=== PATIENT | male | born 1995 | race Caucasian/White ===

== ENCOUNTER 2016-05-03 12:02 | Emergency (ER) | payer OTHER ==
[~2016-05-03] VITALS: Ht 182.9 cm; Wt 70.6 kg
[~2016-05-03 12:02] MED LIST: ALBUAER INH; CEPH500T PO
[2016-05-03 12:04] VITALS: TEMP 36.9; Ht 182.9 cm; Wt 70.6 kg
[2016-05-03] MEDS ORDERED: VNTHFA/IN INH (12:15)
[2016-05-03] MEDS ORDERED: CEPH500C PO (12:23)
[2016-05-03] MEDS ORDERED: SULF800T23 PO (12:23)
[2016-05-03 12:25] VITALS: BP 121/74; PULSE 94; O2SAT 97
--- NOTE | 2016-05-03 12:26 | EMERGENCY ROOM VISIT NOTE ---
History First contact with patient: 12:12 Chief Complaint: WOUND INFECTION Stated Complaint: INFECTED CUT Nursing Triage Summary: Patient reports he was in [place] and is unsure what exactly he cut his leg on but left leg is now red swollen and swollen History of Present Illness The patient is a 20 year old male who presents to the Emergency Room with complaints of a possible wound infection of his left lower leg. The patient reports that he was on spring break in [place] last week and cut the leg on some stairs 1 week ago. He states that when he woke up this morning, the area around the scab was read and there was a small amount of drainage. He rates the discomfort a 5/10. The patient does report he has had infections in his knee before, but is unsure about a history of MRSA. He has not had any fevers/ chills or red streaking up the leg. He denies any numbness or weakness. Review of Systems A complete 6 point review of systems was reviewed with the patient with pertinent positives and negatives as per history of present illness. All else were negative. Social History Smoking Status: Never Smoker Current/Historical Medications Scheduled Albuterol Hfa (Ventolin Hfa), 2-4 PUFFS INH Q6H Cephalexin Monohydrate (Keflex), 500 MG PO QID Sulfa/Trimethoprim (Bactrim Ds 800MG/160MG), 1 TAB PO BID Allergies Coded Allergies: No Known Allergies (Unverified , 05/03/16) Physical Exam Vital Signs Date Time Temp Pulse Resp B/P Pulse Ox O2 Delivery O2 Flow Rate FiO2 05/03/16 12:04 36.9 98 20 112/73 95 Room Air Physical Exam VITALS: Vitals are noted on the nurse's note and reviewed by myself. Vital signs stable. GENERAL: This is a 20-year-old male, in no acute distress, nondiaphoretic, well- developed well-nourished. SKIN: There is a scabbed 12 cm laceration to the anterior left jackman with surrounding erythema. There is a minimal amount of puslike drainage. No lymphangitic streaking, induration or fluctuance. HEART: Regular rate and rhythm without murmurs gallops or rubs. LUNGS: Clear to auscultation bilaterally without wheezes, rales or rhonchi. NEURO: Patient was alert and oriented to person place and time. Medical Decision & Procedures Medications Administered Medications (Trade) Dose Ordered Sig/Nicho Route Start Time Stop Time Status Last Admin Dose Admin Cephalexin Monohydrate (Keflex 500MG Home Pack) 1 homepack NOW ONCE PO 05/03/16 12:30 05/03/16 12:31 DC 05/03/16 12:35 1 HOMEPACK Trimethoprim/ Sulfamethoxazole (Sulfameth/ Trimeth Ds 800/ 160MG Home Pack) 1 homepack UD ONCE PO 05/03/16 12:30 05/03/16 12:31 DC 05/03/16 12:35 1 HOMEPACK Medical Decision Differential diagnosis includes cellulitis, wound dehiscence, abscess, among others. The patient was evaluated as above. He has a healing wound with surrounding cellulitis. There is no evidence of abscess. A culture of the drainage was obtained and sent. As there is a small amount of drainage, I did choose to give the patient Bactrim in addition to Keflex to provide coverage for MRSA, pending the culture results. He was given home packs and prescriptions for both of these medications. He was instructed to follow-up with [facility] or return here if he has any signs of worsening infection. He verbalized understanding of my assessment and treatment plan and was discharged home in good condition. After my evaluation of the patient, he requested a refill of his albuterol inhaler. The patient reports he has a history of asthma but lost his inhaler while on vacation. He denies any symptoms at this time. He was given one albuterol inhaler and instructed to follow-up with [facility] in the future. Impression Primary Impression: Infected laceration Departure Information Dispostion Home / Self-Care Condition GOOD Prescriptions Sulfa/Trimethoprim (Bactrim Ds 800MG/160MG) Tab 1 TAB PO BID for 10 Days, #20 TAB Prov: Savanna Null PA-C 05/03/16 Cephalexin Monohydrate (Keflex) 500 Mg Cap 500 MG PO QID for 10 Days, #40 CAP Prov: Savanna Null PA-C 05/03/16 Referrals No Doctor, Assigned (PCP) Patient Instructions [facility] Additional Instructions You were prescribed Bactrim to be taken twice daily as prescribed. This is an antibiotic. All antibiotics have the potential to cause diarrhea. Stop this medication and contact a medical provider if you were to develop any significant adverse side effects including: wheezing, shortness of breath, passing out, vomiting, or a diffuse rash. Always take antibiotics as directed and COMPLETE the ENTIRE course regardless of the improvement of your symptoms. You were prescribed Keflex to be taken 4 times daily as prescribed. This is an antibiotic. All antibiotics have the potential to cause diarrhea. Stop this medication and contact a medical provider if you were to develop any significant adverse side effects including: wheezing, shortness of breath, passing out, vomiting, or a diffuse rash. Always take antibiotics as directed and COMPLETE the ENTIRE course regardless of the improvement of your symptoms. For pain control, you can use the following [id number] medicines (if >12 yo): - Regular strength (325mg/tab) Tylenol (acetaminophen) 2 tabs every 4-6 hours as needed. Do not exceed 12 tablets in a 24 hour period. Avoid taking more than 4 grams (4000 mg) of Tylenol per day. This includes any other sources of acetaminophen you may take on a regular basis. - Regular strength (200 mg/tab) Advil (ibuprofen) 1-2 tabs every 4-6 hours as needed. Do not exceed a dose of 3200 mg per day. Follow-up with [facility] as needed. Return to the emergency department with worsening redness, worsening swelling, fevers or any other new/concerning symptoms.
[2016-05-03] MEDS ORDERED: CEPHALEXIN 500MG HOME PACK 1 EA BTL PO ONE (12:30)
[2016-05-03] MEDS ORDERED: SEPTRA DS HOME PACK 1 EA VIAL PO ONE (12:30)
[2016-05-03] MEDS ORDERED: ALBUTEROL HFA 8 GM INHALER INH ONE ×2 (12:36→12:45)
[2016-05-23] MEDS ORDERED: CEPH500C2 PO (07:55)
== END 2016-05-03 12:38 | disposition home or self-care (01) ==
LOC: C.EDB 12:04 → C.EDD 12:38
DX: S81.812A Laceration without foreign body, left lower leg, initial encounter (principal); X58.XXXA Exposure to other specified factors, initial encounter; L03.116 Cellulitis of left lower limb

== ENCOUNTER 2016-05-03 20:27 | Inpatient (IN) | payer OTHER ==
[~2016-05-03] VITALS: Ht 182.9 cm; Wt 69.6 kg
[~2016-05-03 20:27] MED LIST changes: +CEPH500C PO; +SULF800T23 PO; +VNTHFA/IN INH
[2016-05-03] MEDS ORDERED: ACETAMINOPHEN 500 MG TAB PO STA (20:52)
[2016-05-03] MEDS ORDERED: SODIUM CHLORIDE 0.9% 1000ML 1,000 ML IV STA (20:57)
[2016-05-03 21:28] LABS: BASO % 0.2 %; BASO ABS # 0.02 K/uL (0-0.2); COMPLETE YES; EOS % 0.3 %; HEMATOCRIT 40.1 % (42-52); IG% 0.3 %; LYMPH % 6.3 %; LYMPH ABS # 0.74 K/uL (1.2-3.4); MEAN CELL VOLUME 86.2 fL (80-100); MEAN CORPUSCULAR HGB CONC 35.9 g/dl (32-36); MEAN PLATELET VOLUME 11.3 fL (7.4-10.4); MONO % 10.3 %; NEUT % 82.6 %; PLATELET COUNT 189 K/uL (130-400); RED BLOOD COUNT 4.65 M/uL (4.7-6.1); WHITE BLOOD COUNT 11.83 K/uL (4.8-10.8)
[2016-05-03] MEDS ORDERED: PIPERACILLIN/TAZOBACTAM 4.5 GM/100ML D5W IV STA (21:53)
[2016-05-03] MEDS ORDERED: DAPTOmycin IV 400 MG in SODIUM CHLORIDE 0.9% 50ML 50 ML IV STA (21:53)
[2016-05-03 21:55] LABS: ALB/GLOB RATIO 1.2 (0.9-2); ALKALINE PHOSPHATASE 59 U/L (45-117); ALT/SGPT 30 U/L (12-78); BLOOD UREA NITROGEN 15 mg/dl (7-18); BUN/CREATININE RATIO 11.2 (10-20); CALCIUM 8.9 mg/dl (8.5-10.1); CARBON DIOXIDE 27 mmol/L (21-32); CHLORIDE 102 mmol/L (98-107); GLUCOSE 115 mg/dl (70-99); SODIUM 138 mmol/L (136-145)
[2016-05-03] MEDS ORDERED: ALUMINUM/MAGNESIUM/SIMETH (MAALOX MAX) 30 ML UDC PO PRN (22:45)
[2016-05-03] MEDS ORDERED: POLYETHYLENE (MIRALAX) 17 GM PACK PO PRN (22:45)
[2016-05-03] MEDS ORDERED: ONDANSETRON INJ 2 MG/ML 2 ML VIAL IV PRN (22:45)
[2016-05-03] MEDS ORDERED: ZOLPIDEM TARTRATE 5 MG TAB PO PRN (22:45)
[2016-05-03] MEDS ORDERED: MAGNESIUM HYDROXIDE SUSP 30 ML UDC PO PRN (22:45)
[2016-05-03 22:50] LABS: URINE APPEARANCE CLEAR (CLEAR); URINE BILIRUBIN NEG (NEG); URINE COLOR YELLOW; URINE EPITHELIAL CELL AUTO 0-5 /lpf (0-5); URINE NITRITE NEG (NEG); URINE PH 6.5 (4.5-7.5); URINE SPECIFIC GRAVITY 1.003 (1.000-1.030); UROBILINOGEN NEG (NEG); ZZUR CULT IF INDIC CLEAN CATCH NO
[2016-05-03 22:51] LABS: MANUAL MICROSCOPIC REQUIRED? NO; REVIEW REQ? NO
--- NOTE | 2016-05-03 22:54 | History and Physical ---
History & Physical Date & Time of Service: May 03, 2016 at 22:45 Chief Complaint: Infected Leg Primary Care Physician: No Doctor, Assigned History of Present Illness Source: patient 20 y/o M w/Hx mild intermittent asthma. Pt was vacationing in [facility] 1 week prior and sustained a laceration to his left lower jackman. He was considerably intoxicated at the time so does not recall exactly where this occurred. He thinks he may have sustained the cut on a rock and knows he was in or around the ocean for the majority of the vacation. One week later he developed redness and pain around the laceration and presented to the ER. He was initially discharged with Keflex and Bactrim. He returned to the ER a few hours later as he had developed a fever, lymphangitic tracking up the side of his leg and a lymph node on his left groin. He was tachycardic on arrival. Initial labs reveal leukocytosis and a mild lactic acid elevation. Exam reveals a few areas of discoloration along the initial laceration which may be necrotic. 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[employer] Smoking Status: Never Smoker Alcohol Use: Occasional heavy use - no evidence of dependence Allergies Coded Allergies: No Known Allergies (Unverified , 05/03/16) Home Medications Scheduled Albuterol Hfa (Ventolin Hfa), 2-4 PUFFS INH Q6H Cephalexin Monohydrate (Keflex), 500 MG PO QID Sulfa/Trimethoprim (Bactrim Ds 800MG/160MG), 1 TAB PO BID Review of Systems Constitutional: + chills, + fever, No sweats Eyes: No eye pain, No worsening of vision ENT: No hearing loss, No nasal symptoms, No unusual epistaxis Respiratory: No cough, No sputum, No wheezing Cardiovascular: No PND, No chest pain, No orthopnea Abdomen: No nausea, No pain, No vomiting Musculoskeletal: + problem reported (Laceration and pain/redness ant L jackman - tracking up leg - lymph node L groin), No joint pain, No muscle pain Genitourinary - Male: No dysuria, No hematuria, No urinary frequency, No urinary urgency Neurologic: No memory loss, No paralysis, No weakness Psychiatric: No depression symptoms Endocrine: No fatigue Hematologic / Lymphatic: No abnormal bleeding/bruising Integumentary: + problem reported (Laceration and pain/redness ant L jackman - tracking up leg - lymph node L groin), + rash Allergic / Immunologic: No environmental allergies Physical Exam Vital Signs Date Time Temp Pulse Resp B/P Pulse Ox O2 Delivery O2 Flow Rate FiO2 05/03/16 21:25 109 18 98 Room Air 05/03/16 21:25 98 Room Air 05/03/16 20:36 37.9 137 18 120/91 94 Room Air General Appearance: WD/WN, no apparent distress Head: normocephalic, atraumatic Eyes: normal inspection, PERRL, EOMI ENT: normal ENT inspection, hearing grossly normal, TMs normal, pharynx normal Neck: supple, no adenopathy, thyroid normal, no JVD Respiratory/Chest: chest non-tender, lungs clear, normal breath sounds, no respiratory distress, no accessory muscle use Cardiovascular: regular rate, rhythm, no edema, no gallop, no JVD, no murmur, normal peripheral pulses Abdomen/GI: normal bowel sounds, non tender, soft Back: normal inspection, no CVA tenderness, no muscle spasm, normal range of motion Extremities/Musculoskelatal: normal inspection, no calf tenderness, + pertinent finding (Laceration and pain/redness ant L jackman - tracking up leg - lymph node L groin) Neurologic/Psych: lpn or medical assistant II-XII nml as tested, no motor/sensory deficits, alert, normal mood/affect, normal reflexes, oriented x 3 Skin: + pertinent finding (Laceration and pain/redness ant L jackman - tracking up leg - lymph node L groin) Lymphatic: + pertinent finding (Lymph node L gropin) Diagnostics Laboratory Results Results Past 24 Hours Test 05/03/16 21:00 05/03/16 22:30 Range/Units White Blood Count 11.83 4.8-10.8 K/uL Red Blood Count 4.65 4.7-6.1 M/uL Hemoglobin 14.4 14.0-18.0 g/dL Hematocrit 40.1 42-52 % Mean Corpuscular Volume 86.2 80-100 fL Mean Corpuscular Hemoglobin 31.0 25-34 pg Mean Corpuscular Hemoglobin Concent 35.9 32-36 g/dl Platelet Count 189 130-400 K/uL Mean Platelet Volume 11.3 7.4-10.4 fL Neutrophils (%) (Auto) 82.6 % Lymphocytes (%) (Auto) 6.3 % Monocytes (%) (Auto) 10.3 % Eosinophils (%) (Auto) 0.3 % Basophils (%) (Auto) 0.2 % Neutrophils # (Auto) 9.77 1.4-6.5 K/uL Lymphocytes # (Auto) 0.74 1.2-3.4 K/uL Monocytes # (Auto) 1.22 0.11-0.59 K/uL Eosinophils # (Auto) 0.04 0-0.5 K/uL Basophils # (Auto) 0.02 0-0.2 K/uL RDW Standard Deviation 37.8 36.4-46.3 fL RDW Coefficient of Variation 12.1 11.5-14.5 % Immature Granulocyte % (Auto) 0.3 % Immature Granulocyte # (Auto) 0.04 0.00-0.02 K/uL Sodium Level 138 136-145 mmol/L Potassium Level 3.5-5.1 mmol/L Chloride Level 102 98-107 mmol/L Carbon Dioxide Level 27 21-32 mmol/L Anion Gap 9.0 3-11 mmol/L Blood Urea Nitrogen 15 7-18 mg/dl Creatinine 1.30 0.60-1.40 mg/dl Est Creatinine Clear Calc Drug Dose 90.3 ml/min Estimated GFR () 89.8 Estimated GFR (Non- 77.5 BUN/Creatinine Ratio 11.2 10-20 Random Glucose 115 70-99 mg/dl Calcium Level 8.9 8.5-10.1 mg/dl Total Bilirubin 1.2 0.2-1 mg/dl Aspartate Amino Transf (AST/SGOT) 15-37 U/L Alanine Aminotransferase (ALT/SGPT) 30 12-78 U/L Alkaline Phosphatase 59 45-117 U/L Total Protein 7.8 6.4-8.2 gm/dl Albumin 4.2 3.4-5.0 gm/dl Globulin 3.6 2.5-4.0 gm/dl Albumin/Globulin Ratio 1.2 0.9-2 Microbiology Results 05/03/16 Blood Culture, Received Pending 05/03/16 Blood Culture, Received Pending Diagnostic Radiology Soft tissue inflammation only seen on XR Impression Assessment and Plan 20 y/o M w/Hx mild intermittent asthma. Pt was vacationing in [facility] 1 week prior and sustained a laceration to his left lower jackman. He was considerably intoxicated at the time so does not recall exactly where this occurred. He thinks he may have sustained the cut on a rock and knows he was in or around the ocean for the majority of the vacation. One week later he developed redness and pain around the laceration and presented to the ER. He was initially discharged with Keflex and Bactrim. He returned to the ER a few hours later as he had developed a fever, lymphangitic tracking up the side of his leg and a lymph node on his left groin. He was tachycardic on arrival. Initial labs reveal leukocytosis and a mild lactic acid elevation. Exam reveals a few areas of discoloration along the initial laceration which may be necrotic. 1) Cellulitis and sepsis - Pt treated with Cefepime, Doxy and Dapto to cover for both common G+,G- infection in addition Vibrio species as he was on a beach vacation when this occurred. A surgery consult will be obtained due to possible necrotic areas. Cultures are pending. We will monitor on telemetry and provide IVF overnight. 2) Asthma - Albuterol PRN. Full code - Heparin to be provided AM if no debridement is needed Total time for this admit including review of labs, meds, imaging - discussion with ER attending and pt - 35 min Level of Care Telemetry Resuscitation Status FULL RESUSCITATION VTE Prophylaxis VTE Risk Assessment Done? Y/N: Yes Risk Level: Low
[2016-05-03] MEDS: SODIUM CHLORIDE 0.9% 1000ML 1,000 ML IV SCH (23:48)
[2016-05-03 23:52] VITALS: BP 106/72; PULSE 85; TEMP 37.2; O2SAT 96; Ht 182.9 cm; Wt 69.6 kg
[2016-05-04] VITALS (7 sets, daily range): BP systolic 105–125; BP diastolic 62–82; PULSE 84–104; TEMP 36.7–38.1; O2SAT 94–100
--- NOTE | 2016-05-04 00:15 | EMERGENCY ROOM VISIT NOTE ---
History Report prepared by Jesús: Mirlande Velasquez Under the Supervision of: Dr. Lise Collins D.O. First contact with patient: 20:43 Chief Complaint: INFECTION Stated Complaint: INFECTED LEG History of Present Illness The patient is a 20 year old male who presents to the Emergency Room with complaints of worsening left leg pain starting last week. He was in [place] on spring break last week and fell, cutting his leg on what he thought was stone or concrete stairs. He is not entirely sure regarding the circumstances around his wound. He was seen in the ED earlier today and was given antibiotics for an infection in the wound. He comes back to the ED because the pain and redness is spreading and he feels a swollen lymph node on his upper leg. He reports having a headache and loss of appetite. He also has been sleeping more. He states his tetanus is up to date. Source of History: patient Onset: last week Position: leg (left) Timing: worsening Associated Symptoms: + headache Note: Pt reports loss of appetite and increased sleep. Review of Systems See HPI for pertinent positives & negatives. A total of 10 systems reviewed and were otherwise negative. Past Medical & Surgical Medical Problems: (1) Cellulitis and abscess of leg Family History Patient reports no known family medical history. Social History Smoking Status: Never Smoker Alcohol Use: occasionally Marital Status: single Occupation Status: [employer] student Current/Historical Medications Scheduled Albuterol Hfa (Ventolin Hfa), 2-4 PUFFS INH Q6H Cephalexin Monohydrate (Keflex), 500 MG PO QID Sulfa/Trimethoprim (Bactrim Ds 800MG/160MG), 1 TAB PO BID Allergies Coded Allergies: No Known Allergies (Unverified , 05/03/16) Physical Exam Vital Signs Date Time Temp Pulse Resp B/P Pulse Ox O2 Delivery O2 Flow Rate FiO2 05/03/16 21:25 109 18 98 Room Air 05/03/16 21:25 98 Room Air 05/03/16 20:36 37.9 137 18 120/91 94 Room Air Physical Exam HEENT: Head - normocephalic and atraumatic Pupils are equal, round, and reactive to light. Extraocular eye muscles are intact, and sclera are anicteric. Nose - moist nasal mucosa without discharge. Mouth - moist buccal mucosa. Oropharynx is nonerythematous and there is no tonsillar exudate or edema noted. Neck: Supple; no JVD, nuchal rigidity, cervical lymphadenopathy. Heart: Tachycardic rate and regular rhythm. There is a normal S1 and S2 with no murmurs, clicks, or gallops appreciated. Lungs: Clear to auscultation bilaterally with no wheezes, rales, or rhonchi. Abdomen: Soft, completely nontender, nondistended, with good bowel sounds. There are no palpable pulsatile masses or hepatosplenomegaly. There is no guarding, rigidity, or rebound noted. Extremities: No evidence of cyanosis or clubbing. There are easily palpable peripheral pulses. Large linear laceration to the anterior tib/fib region of the left lower extremity that is scabbed over. Surrounding erythema and edema, with obvious lymphangitic spread. Palpable, tender lymph nodes in the left upper leg. Skin: hot and dry with good turgor and no rashes. Medical Decision & Procedures Laboratory Results 05/03/16 21:00 Red Blood Count 4.65, Mean Corpuscular Volume 86.2, Mean Corpuscular Hemoglobin 31.0, Mean Corpuscular Hemoglobin Concent 35.9, Mean Platelet Volume 11.3, Neutrophils (%) (Auto) 82.6, Lymphocytes (%) (Auto) 6.3, Monocytes (%) (Auto) 10.3, Eosinophils (%) (Auto) 0.3, Basophils (%) (Auto) 0.2, Neutrophils # (Auto ) 9.77, Lymphocytes # (Auto) 0.74, Monocytes # (Auto) 1.22, Eosinophils # (Auto ) 0.04, Basophils # (Auto) 0.02 05/03/16 21:00 Test 05/03/16 21:00 05/03/16 22:30 White Blood Count 11.83 K/uL (4.8-10.8) Red Blood Count 4.65 M/uL (4.7-6.1) Hemoglobin 14.4 g/dL (14.0-18.0) Hematocrit 40.1 % (42-52) Mean Corpuscular Volume 86.2 fL (80-100) Mean Corpuscular Hemoglobin 31.0 pg (25-34) Mean Corpuscular Hemoglobin Concent 35.9 g/dl (32-36) Platelet Count 189 K/uL (130-400) Mean Platelet Volume 11.3 fL (7.4-10.4) Neutrophils (%) (Auto) 82.6 % Lymphocytes (%) (Auto) 6.3 % Monocytes (%) (Auto) 10.3 % Eosinophils (%) (Auto) 0.3 % Basophils (%) (Auto) 0.2 % Neutrophils # (Auto) 9.77 K/uL (1.4-6.5) Lymphocytes # (Auto) 0.74 K/uL (1.2-3.4) Monocytes # (Auto) 1.22 K/uL (0.11-0.59) Eosinophils # (Auto) 0.04 K/uL (0-0.5) Basophils # (Auto) 0.02 K/uL (0-0.2) RDW Standard Deviation 37.8 fL (36.4-46.3) RDW Coefficient of Variation 12.1 % (11.5-14.5) Immature Granulocyte % (Auto) 0.3 % Immature Granulocyte # (Auto) 0.04 K/uL (0.00-0.02) Anion Gap 9.0 mmol/L (3-11) Est Creatinine Clear Calc Drug Dose 90.3 ml/min Estimated GFR () 89.8 Estimated GFR (Non- 77.5 BUN/Creatinine Ratio 11.2 (10-20) Calcium Level 8.9 mg/dl (8.5-10.1) Total Bilirubin 1.2 mg/dl (0.2-1) Aspartate Amino Transf (AST/SGOT) U/L (15-37) Alanine Aminotransferase (ALT/SGPT) 30 U/L (12-78) Alkaline Phosphatase 59 U/L (45-117) Total Protein 7.8 gm/dl (6.4-8.2) Albumin 4.2 gm/dl (3.4-5.0) Globulin 3.6 gm/dl (2.5-4.0) Albumin/Globulin Ratio 1.2 (0.9-2) Urine Color YELLOW Urine Appearance CLEAR (CLEAR) Urine pH 6.5 (4.5-7.5) Urine Specific [place] 1.003 (1.000-1.030) Urine Protein NEG (NEG) Urine Glucose (UA) NEG (NEG) Urine Ketones NEG (NEG) Urine Occult Blood NEG (NEG) Urine Nitrite NEG (NEG) Urine Bilirubin NEG (NEG) Urine Urobilinogen NEG (NEG) Urine Leukocyte Esterase NEG (NEG) Urine WBC (Auto) 0 /hpf (0-5) Urine RBC (Auto) 0-4 /hpf (0-4) Urine Hyaline Casts (Auto) 0 /lpf (0-5) Urine Epithelial Cells (Auto) 0-5 /lpf (0-5) Urine Bacteria (Auto) NEG (NEG) Laboratory results per my review. Medications Administered Medications (Trade) Dose Ordered Sig/Nicho Route Start Time Stop Time Status Last Admin Dose Admin Acetaminophen 1000 mg 1,000 mg NOW STAT PO 05/03/16 20:52 05/03/16 20:55 DC 05/03/16 21:21 1,000 MG Sodium Chloride (Nss 1000ml) 1,000 ml @ 999 mls/hr Q1H1M STAT IV 05/03/16 20:57 05/03/16 21:57 DC 05/03/16 21:20 999 MLS/HR Piperacillin Sod/ Tazobactam Sod 4.5 gm 4.5 gm NOW STAT IV 05/03/16 21:53 05/03/16 21:55 DC 05/03/16 22:11 4.5 GM Daptomycin/Sodium Chloride (Cubicin IV/Nss 50ml) 58 ml @ 100 mls/hr NOW STAT IV 05/03/16 21:53 05/03/16 22:27 DC 05/03/16 22:55 100 MLS/HR Procedure Medications: Tylenol Tab 1000 mg PO, NSS 1000 ml @ 999 mls/hr IV, Daptomycin 400 mg/ Sodium Chloride 58 ml @ 100 mls/hr IV, Zosyn IV 4.5 gm IV. ED Course 2046: The patient was evaluated in room C8. A complete history and physical examination were performed. Nursing notes and previous electronic medical records were reviewed. IV lock was established and labs were drawn as above including a lactic acid and blood cultures. A full septic workup was performed. 2051: Tylenol Tab 1000 mg PO. 2056: NSS 1000 ml @ 999 mls/hr IV. 2152: Daptomycin IV and Zosyn IV 2204: I discussed the patient's case with Dr. Macias, [facility] [place] [place] - hospitalist. He will be evaluating for further management. 2223: I reevaluated the patient. I discussed with him the results and treatment plan. He verbalized understanding and agreement. He will be evaluated for further management by [facility]. 2249: I spoke with both of the patient's parents on the phone. I discussed with them the patient's condition. They agreed with the treatment plan. Medical Decision The patient is a 20 year old male who presents to the ED with left leg pain. Differential diagnosis includes cellulitis, sepsis, wound infection. Labs: Lactic acid 1.45, WBC count 11.8, stable H&H, 82% neutrophil, glucose 115 , normal renal function and LFTs. This is a 20-year-old male patient suffered an injury to his left leg last week. He began to notice some redness, increased pain and swelling to that wound yesterday. He came to the emergency department earlier today and was evaluated. He was prescribed Bactrim and Keflex. A culture was taken at that time. The patient returns to the emergency department this evening because the redness began to spread in the pain seemed to worsen. On Physical exam, there was some small amount of drainage coming from the wound. There is significant surrounding erythema, edema and warmth. The patient was noted to have lymphangitic spread. I was concerned for a wound infection with cellulitis and possible sepsis. Patient was treated with IV antibiotics. Consults Time Called: 2199 Consulting Physician: Dr. Macias [facility] [place] [place] - hospitalist Returned Call: [phone] I discussed the patient's case with him. He will be evaluated for further management. Impression Primary Impression: Traumatic open wound of left lower leg with infection Additional Impression: Cellulitis Scribe Attestation The scribe's documentation has been prepared under my direction and personally reviewed by me in its entirety. I confirm that the note above accurately reflects all work, treatment, procedures, and medical decision making performed by me. Departure Information Dispostion Being Evaluated By Hospitalist Referrals No Doctor, Assigned (PCP) Patient Instructions [facility] Problem Qualifiers
[2016-05-04] MEDS: CEFEPIME IV 1,000 MG in DEXTROSE 5% 100ML 100 ML IV SCH ×2 (00:30→07:53)
[2016-05-04] MEDS: DOXYCYCLINE IV 100 MG in DEXTROSE 5% 100ML 100 ML IV SCH ×2 (01:03→13:14)
[2016-05-04] MEDS: ACETAMINOPHEN 325 MG TAB PO PRN ×3 (04:12→22:00)
[2016-05-04] MEDS: SODIUM CHLORIDE 0.9% 1000ML 1,000 ML IV SCH ×2 (06:24→12:47)
[2016-05-04 06:42] LABS: BASO % 0.2 %; BASO ABS # 0.02 K/uL (0-0.2); COMPLETE YES; HEMATOCRIT 36.5 % (42-52); IG% 0.3 %; LYMPH % 12.1 %; LYMPH ABS # 1.22 K/uL (1.2-3.4); MEAN CELL VOLUME 86.5 fL (80-100); MEAN CORPUSCULAR HEMOGLOBIN 30.3 pg (25-34); MEAN CORPUSCULAR HGB CONC 35.1 g/dl (32-36); MEAN PLATELET VOLUME 10.9 fL (7.4-10.4); MONO % 15.7 %; NEUT % 70.7 %; PLATELET COUNT 144 K/uL (130-400); RED BLOOD COUNT 4.22 M/uL (4.7-6.1); WHITE BLOOD COUNT 10.09 K/uL (4.8-10.8)
[2016-05-04 07:13] LABS: BUN/CREATININE RATIO 10.2 (10-20); CALCIUM 8.3 mg/dl (8.5-10.1); CREATININE 1.1 mg/dl (0.60-1.40); MAGNESIUM 2.2 mg/dl (1.8-2.4); POTASSIUM 3.3 mmol/L (3.5-5.1)
--- NOTE | 2016-05-04 08:23 | Surgery Consultation ---
Consultation Date of Consultation: May 04, 2016. Attending Physician: Karolina Jimenez MD Reason for Consultation: Left lower extremity laceration and cellulitis (Ermelinda Ruiz PA-C) History of Present Illness Jair is a 20 year-old male with medical history of intermittent asthma who presented to emergency department yesterday with complaint of redness and swelling of left lower extremity laceration that he obtained while in [facility] on spring. Believes he hit his jackman on stair case of rocks. He did not have any swelling or redness or severe pain while in [place]. Jair was given Keflex and Bactrim in ER and sent home. He then presented later given fever, increasing redness swelling and pain. He had a slight fever and mild leukocytosis of 11.8 and lactic acid was within normal limits at 0.6. He was admitted and placed on IV Cefepime, IV Daptomycin, and IV Vibramycin. Our services consulted for possible debridement. Jair states the pain is minimal and swelling has gone down. Took some Tylenol for fever last evening but nothing since for any pain. Denies of any pain in the left calf. No drainage. No increase in the surrounding redness from yesterday. (Ermelinda Ruiz PA-C) Past Medical/Surgical History Medical Problems: (1) Cellulitis Status: Acute (2) Infected laceration Status: Acute (3) Traumatic open wound of left lower leg with infection Status: Acute (Ermelinda Ruiz PA-C) Family History Patient reports no known family medical history. (Ermelinda Ruiz PA-C) Patient reports no known family medical history. (Aleida Carlisle MD) Social History Smoking Status: Never Smoker Alcohol Use: Occasional heavy use - no evidence of dependence Marital Status: single Occupation Status: [employer] student (Ermelinda Ruiz PA-C) Allergies Coded Allergies: No Known Allergies (Unverified , 05/03/16) Home Medications Scheduled Albuterol Hfa (Ventolin Hfa), 2-4 PUFFS INH Q6H Cephalexin Monohydrate (Keflex), 500 MG PO QID Sulfa/Trimethoprim (Bactrim Ds 800MG/160MG), 1 TAB PO BID Current Inpatient Medications Current Inpatient Medications Medications (Trade) Dose Ordered Sig/Nicho Route Start Time Stop Time Status Last Admin Dose Admin Acetaminophen (Tylenol Tab) 650 mg Q4H PRN PO 05/03/16 22:45 06/02/16 22:44 05/04/16 04:12 650 MG Al Hydrox/Mg Hydrox/Simethicone (Maalox Max Susp) 15 ml Q4H PRN PO 05/03/16 22:45 06/02/16 22:44 Magnesium Hydroxide (Milk Of Magnesia Susp) 30 ml Q12H PRN PO 05/03/16 22:45 06/02/16 22:44 Zolpidem Tartrate (Ambien Tab) 5 mg HSZ PRN PO 05/03/16 22:45 06/02/16 22:44 Ondansetron HCl (Zofran Inj) 4 mg Q6H PRN IV 05/03/16 22:45 06/02/16 22:44 Polyethylene 17 gm 17 gm DAILY PRN PO 05/03/16 22:45 06/02/16 22:44 Cefepime HCl 1000 mg/Dextrose 111.3 ml @ 200 mls/hr Q8H IV 05/04/16 00:00 05/14/16 00:00 05/04/16 07:53 200 MLS/HR Doxycycline Hyclate 100 mg/ Dextrose 110 ml @ 50 mls/hr Q12H IV 05/04/16 01:00 05/14/16 00:59 05/04/16 01:03 50 MLS/HR Daptomycin 400 mg/ Sodium Chloride 58 ml @ 100 mls/hr Q24H IV 05/04/16 23:00 05/12/16 23:35 Sodium Chloride (Nss 1000ml) 1,000 ml @ 150 mls/hr Q6H40M IV 05/03/16 22:45 05/04/16 12:04 05/04/16 06:24 150 MLS/HR (Ermelinda Ruiz, PA-C) Review of Systems Constitutional: + fever (slight fever), No chills, No sweats Respiratory: No shortness of breath Cardiovascular: No chest pain Musculoskeletal: + swelling (decreased swelling of left lower extremity compared to yesterday), No calf pain Integumentary: No color change (of left lower extremity laceration) (Joseph, Ermelnida ., PA-C) Physical Exam Date Time Temp Pulse Resp B/P Pulse Ox O2 Delivery O2 Flow Rate FiO2 05/04/16 07:56 36.7 86 16 117/66 96 Room Air 05/04/16 06:02 37.6 05/04/16 04:19 38.1 100 17 120/71 94 Room Air 05/04/16 04:00 Room Air 05/03/16 23:59 Room Air 05/03/16 23:52 37.2 85 18 106/72 96 Room Air 05/03/16 23:21 37.6 88 18 119/65 96 05/03/16 21:25 109 18 98 Room Air 05/03/16 21:25 98 Room Air 05/03/16 20:36 37.9 137 18 120/91 94 Room Air General Appearance: WD/WN, no apparent distress Head: normocephalic, atraumatic Eyes: sclerae normal ENT: hearing grossly normal Neck: trachea midline Respiratory/Chest: no respiratory distress, no accessory muscle use Cardiovascular: normal peripheral pulses (left posterior tibial pulse +2) Extremities/Musculoskelatal: no calf tenderness, no pedal edema, + pertinent finding (LLE laceration about 10 cm in length with surrounding cellulitis, slight streak up the medial aspect of leg however no induration or flucutance. Slight necrotic scab in the laceration, no fibrinous tissue present. ) Neurologic/Psych: alert, normal mood/affect, normal reflexes Skin: warm/dry (Ermelinda Ruiz ., PA-C) Laboratory Results Last 24 Hours Test 05/03/16 21:00 05/03/16 22:30 05/04/16 06:33 White Blood Count 11.83 K/uL 10.09 K/uL Red Blood Count 4.65 M/uL 4.22 M/uL Hemoglobin 14.4 g/dL 12.8 g/dL Hematocrit 40.1 % 36.5 % Mean Corpuscular Volume 86.2 fL 86.5 fL Mean Corpuscular Hemoglobin 31.0 pg 30.3 pg Mean Corpuscular Hemoglobin Concent 35.9 g/dl 35.1 g/dl Platelet Count 189 K/uL 144 K/uL Mean Platelet Volume 11.3 fL 10.9 fL Neutrophils (%) (Auto) 82.6 % 70.7 % Lymphocytes (%) (Auto) 6.3 % 12.1 % Monocytes (%) (Auto) 10.3 % 15.7 % Eosinophils (%) (Auto) 0.3 % 1.0 % Basophils (%) (Auto) 0.2 % 0.2 % Neutrophils # (Auto) 9.77 K/uL 7.14 K/uL Lymphocytes # (Auto) 0.74 K/uL 1.22 K/uL Monocytes # (Auto) 1.22 K/uL 1.58 K/uL Eosinophils # (Auto) 0.04 K/uL 0.10 K/uL Basophils # (Auto) 0.02 K/uL 0.02 K/uL RDW Standard Deviation 37.8 fL 38.6 fL RDW Coefficient of Variation 12.1 % 12.2 % Immature Granulocyte % (Auto) 0.3 % 0.3 % Immature Granulocyte # (Auto) 0.04 K/uL 0.03 K/uL Sodium Level 138 mmol/L 141 mmol/L Potassium Level mmol/L 3.3 mmol/L Chloride Level 102 mmol/L 108 mmol/L Carbon Dioxide Level 27 mmol/L 25 mmol/L Anion Gap 9.0 mmol/L 8.0 mmol/L Blood Urea Nitrogen 15 mg/dl 11 mg/dl Creatinine 1.30 mg/dl 1.10 mg/dl Est Creatinine Clear Calc Drug Dose 90.3 ml/min 103.7 ml/min Estimated GFR () 89.8 109.9 Estimated GFR (Non- 77.5 94.8 BUN/Creatinine Ratio 11.2 10.2 Random Glucose 115 mg/dl 92 mg/dl Calcium Level 8.9 mg/dl 8.3 mg/dl Total Bilirubin 1.2 mg/dl Aspartate Amino Transf (AST/SGOT) U/L Alanine Aminotransferase (ALT/SGPT) 30 U/L Alkaline Phosphatase 59 U/L Total Protein 7.8 gm/dl Albumin 4.2 gm/dl Globulin 3.6 gm/dl Albumin/Globulin Ratio 1.2 Urine Color YELLOW Urine Appearance CLEAR Urine pH 6.5 Urine Specific [place] 1.003 Urine Protein NEG Urine Glucose (UA) NEG Urine Ketones NEG Urine Occult Blood NEG Urine Nitrite NEG Urine Bilirubin NEG Urine Urobilinogen NEG Urine Leukocyte Esterase NEG Urine WBC (Auto) 0 /hpf Urine RBC (Auto) 0-4 /hpf Urine Hyaline Casts (Auto) 0 /lpf Urine Epithelial Cells (Auto) 0-5 /lpf Urine Bacteria (Auto) NEG Lactic Acid Level 0.6 mmol/L Magnesium Level 2.2 mg/dl (Ermelinda Ruiz ., IZAIAH-C) Assessment & Plan LLE Laceration with Cellulitis - no induration or fluctuance - There is small necrotic scab of middle incision however no surrounding necrotic tissue - x-ray ordered of LLE - No evidence of subcutaneous emphysema - Leukocytosis resolved - Blood cultures pending Plan: Continue IV antibiotics and conservative pain management. Await results of LLE x-ray Await blood culture results will follow Dr. Carlisle has seen and examined patient, agrees with above stated findings and treatment plan. (Ermelinda Ruiz ., IZAIAH-C) Pt seen and examined with PA. Agree with history and physical as above. He appears to be responding to IV antibiotics with decreased pain/ swelling. Currently, wound has the laceration with eschar, surrounding erythema and induration but no sign of fluctuance or drainable fluid. No need for surgical intervention at this time. Would continue IV abx as clinically improving. (Aleida Carlisle MD)
[2016-05-04] MEDS ORDERED: POTASSIUM CHLORIDE 20 MEQ TABCR PO ONE (08:30)
--- NOTE | 2016-05-04 09:25 | DIAGNOSTIC IMAGING REPORT ---
LEFT TIBIA AND FIBULA 2 VIEWS CLINICAL HISTORY: Left lower extremity pain. Cellulitis and erythema. FINDINGS: AP and lateral views of the left tibia and fibula are obtained. No prior studies are available for comparison at the time of dictation. The skeletal structures are well mineralized. No fracture is seen. There is no periostitis or bony erosion. The knee and ankle joints are grossly maintained. Soft tissue edema is present in the left leg. No subcutaneous gas is identified. IMPRESSION: Soft tissue swelling with no acute bony abnormality identified. Electronically signed by: Mike Montes De Oca M.D. 05/04/2016 9:23 AM Dictated Date/Time: 05/04/2016 9:22 AM
--- NOTE | 2016-05-04 10:56 | Progress Note ---
Progress Note Date of Service May 04, 2016. Progress Note ID Consult Dictated #[id number] A/P: 1. LLE infected laceration/cellulitis - culture growing GAS and second gpc 2.Fever -Continue dapto for now, stop cefepime -Continue doxy for now as well pending additional culture data -Blood cultures pending, continue to follow -no plans for OR at this time -local wound care -will add clinda as well -will follow, thank you
--- NOTE | 2016-05-04 11:21 | Hospitalist Progress Note ---
Hospitalist Progress Note Date of Service May 04, 2016. (Amara Lopez ., NASEEM) Subjective Pt evaluation today including: conversation w/ patient, conversation w/ family (spoke with pt.'s mother on phone), physical exam, chart review, lab review, review of studies, conversation w/ j2ee consultant (spoke with Ermelinda Ruiz PA-C) , review of inpatient medication list Pain: 5/10 dull pain in LLE anterior jackman PO Intake: Tolerating PO diet, appetite improving Voiding: no voiding problems The patient reports that he sustained a laceration on his anterior left jackman during his vacation to [facility] from 04/22-04/27. He states that he fell on some stairs either on 04/24 or 04/25 in the afternoon. The wound was not initially swollen and just had some slight erythema at the immediate wound edges. After returning home, he began to notice increased swelling and redness at the wound as well as worsening pain. He presented to the ED on 05/03, where a wound culture was taken. He was given Keflex and Bactrim and sent home. Later that afternoon however, the patient noticed a painful, enlarged lymph node in his left groin and had become febrile with worsening swelling and pain in the LLE. He did not have much an appetite prior to arrival. He returned to the ED where he was found to be septic with fever, tachycardia and source of infection. He was started on IV antibiotics and blood cultures were drawn. This morning, the patient reports feeling better. He states the pain has improved and is currently a 5/10 dull pain. He states that the swelling has also improved, as well as his appetite. He does complain of fevers and sweats. The patient denies chills, chest pain, palpitations, claudication, cough, wheezing, shortness of breath, nausea, vomiting, abdominal pain, dysuria, hematuria, urinary retention, paralysis, weakness, numbness and tingling. Additional Comments: See HPI for pertinent positives and negatives. All other systems reviewed and negative. (Amara Lopez ., NASEEM) Objective Vital Signs Date Time Temp Pulse Resp B/P Pulse Ox O2 Delivery O2 Flow Rate FiO2 05/04/16 07:56 36.7 86 16 117/66 96 Room Air 05/04/16 06:02 37.6 05/04/16 04:19 38.1 100 17 120/71 94 Room Air 05/04/16 04:00 Room Air 05/03/16 23:59 Room Air 05/03/16 23:52 37.2 85 18 106/72 96 Room Air 05/03/16 23:21 37.6 88 18 119/65 96 05/03/16 21:25 109 18 98 Room Air 05/03/16 21:25 98 Room Air 05/03/16 20:36 37.9 137 18 120/91 94 Room Air (Amara Lopez ., PA-C) Physical Exam General Appearance: WD/WN, no apparent distress Eyes: normal inspection, PERRL, EOMI ENT: normal ENT inspection, hearing grossly normal, pharynx normal Neck: supple, no JVD, trachea midline Respiratory/Chest: lungs clear, normal breath sounds, no respiratory distress Cardiovascular: regular rate, rhythm, no gallop, no murmur Abdomen: normal bowel sounds, non tender, soft Extremities: no pedal edema, normal capillary refill, + pertinent finding ( large 10 cm laceration on anterior aspect of L jackman with minimal drainage. areas of scabbing with possible superficial necrosis. surrounding erythema, especially on medial aspect. tracking on the medial aspect.) Neurologic/Psychiatric: no motor/sensory deficits, alert, normal mood/affect, oriented x 3 Skin: normal color, warm/dry, no rash Lymphatic: + inguinal node tender (L) (Amara Lopez ., PA-C) Laboratory Results Last 24 Hours Test 05/03/16 21:00 05/03/16 22:30 05/04/16 06:33 White Blood Count 11.83 K/uL 10.09 K/uL Red Blood Count 4.65 M/uL 4.22 M/uL Hemoglobin 14.4 g/dL 12.8 g/dL Hematocrit 40.1 % 36.5 % Mean Corpuscular Volume 86.2 fL 86.5 fL Mean Corpuscular Hemoglobin 31.0 pg 30.3 pg Mean Corpuscular Hemoglobin Concent 35.9 g/dl 35.1 g/dl Platelet Count 189 K/uL 144 K/uL Mean Platelet Volume 11.3 fL 10.9 fL Neutrophils (%) (Auto) 82.6 % 70.7 % Lymphocytes (%) (Auto) 6.3 % 12.1 % Monocytes (%) (Auto) 10.3 % 15.7 % Eosinophils (%) (Auto) 0.3 % 1.0 % Basophils (%) (Auto) 0.2 % 0.2 % Neutrophils # (Auto) 9.77 K/uL 7.14 K/uL Lymphocytes # (Auto) 0.74 K/uL 1.22 K/uL Monocytes # (Auto) 1.22 K/uL 1.58 K/uL Eosinophils # (Auto) 0.04 K/uL 0.10 K/uL Basophils # (Auto) 0.02 K/uL 0.02 K/uL RDW Standard Deviation 37.8 fL 38.6 fL RDW Coefficient of Variation 12.1 % 12.2 % Immature Granulocyte % (Auto) 0.3 % 0.3 % Immature Granulocyte # (Auto) 0.04 K/uL 0.03 K/uL Sodium Level 138 mmol/L 141 mmol/L Potassium Level mmol/L 3.3 mmol/L Chloride Level 102 mmol/L 108 mmol/L Carbon Dioxide Level 27 mmol/L 25 mmol/L Anion Gap 9.0 mmol/L 8.0 mmol/L Blood Urea Nitrogen 15 mg/dl 11 mg/dl Creatinine 1.30 mg/dl 1.10 mg/dl Est Creatinine Clear Calc Drug Dose 90.3 ml/min 103.7 ml/min Estimated GFR () 89.8 109.9 Estimated GFR (Non- 77.5 94.8 BUN/Creatinine Ratio 11.2 10.2 Random Glucose 115 mg/dl 92 mg/dl Calcium Level 8.9 mg/dl 8.3 mg/dl Total Bilirubin 1.2 mg/dl Aspartate Amino Transf (AST/SGOT) U/L Alanine Aminotransferase (ALT/SGPT) 30 U/L Alkaline Phosphatase 59 U/L Total Protein 7.8 gm/dl Albumin 4.2 gm/dl Globulin 3.6 gm/dl Albumin/Globulin Ratio 1.2 Urine Color YELLOW Urine Appearance CLEAR Urine pH 6.5 Urine Specific [place] 1.003 Urine Protein NEG Urine Glucose (UA) NEG Urine Ketones NEG Urine Occult Blood NEG Urine Nitrite NEG Urine Bilirubin NEG Urine Urobilinogen NEG Urine Leukocyte Esterase NEG Urine WBC (Auto) 0 /hpf Urine RBC (Auto) 0-4 /hpf Urine Hyaline Casts (Auto) 0 /lpf Urine Epithelial Cells (Auto) 0-5 /lpf Urine Bacteria (Auto) NEG Lactic Acid Level 0.6 mmol/L Magnesium Level 2.2 mg/dl (Amara Lopez PA-C) Diagnostic Results Reviewed the following studies and agree with interpretation as follows: Patient Name: SUMI GARCIA Unit Number: [id number] Dictated: 05/04/16921 Transcribed: 05/04/16921 EV Printed Date/Time: [~ rep prt dt]/[~ rep prt tm] [~ rep ct labl] - [~ rep ct ivnm] [facility] [place] [address] Dictated: 05/04/16921 Transcribed: 05/04/16921 EV Printed Date/Time: [~ rep prt dt]/[~ rep prt tm] [~ rep ct labl] - [~ rep ct ivnm] Patient: SUMI GARCIA Address1: [address] [place] [address] Rec: [id number] Address2: Acct ID: [id number] [facility] Zip: [place] [address] Date: 1995 Sex: M Room/Bed: Banner Ref Phy: No Doctor, Assigned SC: C.2E Att Phy: Karolina Jimenez MD Report #: [id number] Kadie Phy: No Doctor, Assigned Test: TF Admit Phy: Glenn Macias MD [employer] Maker: ABHISHEK Interpreting Phy: Mike Montes De Oca M.D. Diagnosis: CELLULITIS AND ABSCESS OF LEG Ordering Phy: Amara Lopez PA-C Service Date: 05/04/16 Admit Date: 05/03/1702/14/17 MNE: [id number] CONF: DICTATED BY: Mike Montes De Oca M.D.]] CC: Amara Lopez PA-C No Doctor, Assigned Karolina Jimenez MD Endcc: [~ rep ct add3]] LEFT TIBIA AND FIBULA 2 VIEWS CLINICAL HISTORY: Left lower extremity pain. Cellulitis and erythema. FINDINGS: AP and lateral views of the left tibia and fibula are obtained. No prior studies are available for comparison at the time of dictation. The skeletal structures are well mineralized. No fracture is seen. There is no periostitis or bony erosion. The knee and ankle joints are grossly maintained. Soft tissue edema is present in the left leg. No subcutaneous gas is identified. IMPRESSION: Soft tissue swelling with no acute bony abnormality identified. Electronically signed by: Mike Montes De Oca M.D. 05/04/2016 9:23 AM Dictated Date/Time: 05/04/2016 9:22 AM The status of this report is Signed. Draft = Not yet reviewed or approved by Radiologist. Signed = Reviewed and approved by Radiologist. <AttendingPhy>Karolina Jimenez MD</AttendingPhy> <FamilyPhy>No Doctor, Assigned</FamilyPhy> <PrimaryPhy>No Doctor, Assigned</PrimaryPhy> <UnitNumber> [id number]</UnitNumber> <VisitNumber>[id number]</VisitNumber> <PatientName> SUMI GARCIA</PatientName> <DateOfBirth>1995</DateOfBirth> <Location> C.2E</Location> <ServiceDate>05/03/16</ServiceDate> <MNE>ESINDI</MNE> < OrderingPhy>Amara Lopez PA-C</OrderingPhy> <OrderingPhyMNE>f rep ord dr connor< /OrderingPhyMNE> <DictatingPhyMNE>f rep dict dr connor</DictatingPhyMNE> <CCListMNE >f rep ct geeta</CCListMNE> <AdmittingPhyMNE>f pt admit dr connor</AdmittingPhyMNE> < AttendingPhyMNE>f pt attend dr connor</AttendingPhyMNE> <ConsultingPhyMNE>f pt consult dr connor</ConsultingPhyMNE> <FamilyPhyMNE>f pt fam dr connor</FamilyPhyMNE> <OtherPhyMNE>f pt other dr connor</OtherPhyMNE> < PrimaryPhyMNE>f pt prim care dr connor</PrimaryPhyMNE> <ReferringPhyMNE>f pt referring dr connor</ReferringPhyMNE> (Amara Lopez .NASEEM) Assessment and Plan 20 y/o male with a history of intermittent asthma who presents to the ED with fevers as well as swelling and erythema of the LLE. Sustained laceration on left anterior jackman on 04/24 or 04/25 during vacation in [facility]. No issues initially , then on 05/03 developed worsening pain, erythema, and edema. He presented to the ED on 05/03, where a wound culture was taken. He was given Keflex and Bactrim and sent home. Later that afternoon however, the patient noticed a painful, enlarged lymph node in his left groin and had become febrile with worsening swelling and pain in the LLE. He did not have much an appetite prior to arrival. He returned to the ED where he was found to be septic with fever, tachycardia and source of infection. He was started on IV antibiotics and blood cultures were drawn. LLE cellulitis/laceration with sepsis--met sepsis criteria on admission with fevers, tachycardia and source of infection -Admit to telemetry. No events overnight, remained in SR -Lactic acid WNL at 0.6 -Decrease IVF to 75 cc/hr -General surgery consulted due to concern for possible necrotizing fasciitis, appreciate recs: no need for surgical debridement/surgical intervention at this time. Continue IV abx and follow wound/blood cultures. -ID consulted, appreciate recs: Continue daptomycin and doxycycline for now pending C&S. Stop cefepime. Add clindamycin. -Wound culture positive for Group A strep and 2nd GPC -Blood cultures pending -Mild leukocytosis resolved: WBC down to 10.09 from 11.83 -Left tib/fib x-ray shows soft tissue swelling, no subcutaneous gas or bony abnormalities Intermittent asthma -Albuterol inhaler prn SOB/wheezing DVT prophylaxis -Enoxaparin 40 mg SC q24h Code Status -Level I, FULL RESUSCITATION STATUS (Amara Lopez ., NASEEM) Reviewed: Pt Seen/Exam by Me (Karolina Jimenez MD) History Physician Right Of Way Appraiser Supervision Note: I interviewed and examined the patient. Discussed with IZAIAH Lopez and agree with findings and plan as documented in the note. Any exceptions or clarifications are listed here: Feeling better. No CP, cough, SOB,abd pain, diarrhea, sore throat, rashes. With fever this AM but none since then Vitals reviewed NAD,AAOx3 RRR no mgr CTAB no wcr breathing unlabored Abd soft NT ND +BS SKin: left anterior tibia with large scabbed over laceration about 15 cm, surrounding erythema and tenderness but no subcutaneous emphysema palpated, no streaking erythema Ext: left inguinal ALETHA palpated and is tender 20 yo male with sepsis, left leg cellulitis and wound. COntinue Dapto,clinda for antitoxin effect, doxy to cover for waterborne liam -appreciate ID consult Documented By: Karolina Jimenez (Karolina Jimenez MD)
--- NOTE | 2016-05-04 11:42 | INFECT. DISEASE CONSULTATION ---
DATE OF CONSULTATION: 05/04/2016 REQUESTING PHYSICIAN: Dr. Macias. HISTORY OF PRESENT ILLNESS: This is a 20-year-old gentleman who was admitted after he had worsening pain in his left lower extremity. He was initially seen in the ER on the and sent home on Keflex and Bactrim. He went home and then developed a fever. He returned to the Emergency Room and was subsequently admitted. On his first visit to the Emergency Room, he states a small amount of purulent drainage was expressed from the wound. Preliminary cultures are growing group A strep and a second gram positive cocci, which has not yet been identified. Blood cultures were obtained on admission on the and are pending. He is currently on daptomycin and doxycycline and cefepime. He is tolerating antibiotics well. He denies any additional fevers or chills. He did suffer a laceration to his left jackman while on spring in [place]. Per the H and P, he was intoxicated at that time and believes that he cut it on a rock, but is unsure. He was swimming in the ocean [place] on [place]. He currently states he has had improvement in pain and swelling. There is no bleeding or drainage. He initially had a leukocytosis of 11.8. This has improved to 10. Urinalysis was performed and was negative. An x-ray did not show any bone involvement. A surgical consultation was obtained and there is no plan for surgical debridement at this time. He states that he is able to ambulate without difficulty. He states the pain and swelling is improving. He is tolerating antibiotics well. All remaining review of systems are reviewed and are negative except for as noted. PAST MEDICAL HISTORY: Significant for asthma. PAST SURGICAL HISTORY: Unremarkable. FAMILY HISTORY: Noncontributory. SOCIAL HISTORY: Negative for tobacco use. He does drink occasionally. He denies any drug use. He is currently a student. ALLERGIES: He has no known drug allergies. CURRENT MEDICATIONS: Include daptomycin, doxycycline, cefepime, Tylenol, Maalox, milk of magnesia, Ambien, Zofran, and MiraLax. PHYSICAL EXAMINATION: VITAL SIGNS: T-max this morning was 38.1; however, he denies any fevers. Current temperature is 36.7, pulse 86, respiratory rate is 16, blood pressure is 117/66, and oxygen saturation is 96% on room air. GENERAL: He is awake, alert and oriented x3. He is in no acute distress. HEENT: Mucous membranes are moist. Extraocular muscles are intact. HEART: Regular. LUNGS: Clear. ABDOMEN: Soft. EXTREMITIES: There is no lower extremity edema. Examination of the left lower extremity does reveal significant laceration over the anterior jackman. There is surrounding edema, warmth and erythema. There is no bleeding or purulent drainage expressed. There is some tenderness to palpation especially on the medial aspect of the wound. LABORATORY STUDIES: CBC today reveals a white blood cell count of 10, hemoglobin 12.8, hematocrit 36.5, and platelets are 144. Chemistry panel reveals a sodium of 141, potassium 3.3, chloride 108, bicarbonate 25, BUN is 11, and creatinine is 1.1. Urinalysis is unremarkable. Again, blood cultures are pending. Drainage culture from the is growing group A strep and gram positive cocci, which has not yet been identified. ASSESSMENT AND PLAN: Left lower extremity infected laceration. At this time, he can be continued on daptomycin and cefepime will be discontinued as no gram negatives were identified. He was initially placed on doxycycline for concern of vibrio as he was in ocean [place]. I will await final cultures and hopefully change to oral antibiotics within the next 24-48 hours. We will continue to follow along with you. Thank you for this consultation.
[2016-05-04] MEDS: CLINDAMYCIN IV 600 MG in DEXTROSE 5% ADD-VANTAGE 50ML 50 ML IV SCH ×2 (13:14→21:56)
[2016-05-04] MEDS: DAPTOmycin IV 400 MG in SODIUM CHLORIDE 0.9% 50ML 50 ML IV SCH (23:21)
[2016-05-05] VITALS (9 sets, daily range): BP systolic 99–123; BP diastolic 61–83; PULSE 69–89; TEMP 36.5–36.9; O2SAT 96–99
[2016-05-05] MEDS: DOXYCYCLINE IV 100 MG in DEXTROSE 5% 100ML 100 ML IV SCH ×2 (01:12→12:51)
[2016-05-05] MEDS: SODIUM CHLORIDE 0.9% 1000ML 1,000 ML IV SCH (02:30)
[2016-05-05] MEDS: CLINDAMYCIN IV 600 MG in DEXTROSE 5% ADD-VANTAGE 50ML 50 ML IV SCH ×3 (05:48→21:38)
[2016-05-05 08:00] LABS: BASO % 0.3 %; BASO ABS # 0.02 K/uL (0-0.2); COMPLETE YES; IG% 0.3 %; LYMPH % 25.1 %; LYMPH ABS # 1.82 K/uL (1.2-3.4); MEAN CELL VOLUME 89.5 fL (80-100); MEAN CORPUSCULAR HEMOGLOBIN 31.1 pg (25-34); MEAN CORPUSCULAR HGB CONC 34.8 g/dl (32-36); MONO % 22.5 %; NEUT % 47.8 %; PLATELET COUNT 165 K/uL (130-400); RED BLOOD COUNT 4.47 M/uL (4.7-6.1); WHITE BLOOD COUNT 7.26 K/uL (4.8-10.8)
[2016-05-05 08:37] LABS: BUN/CREATININE RATIO 9.1 (10-20); POTASSIUM 3.6 mmol/L (3.5-5.1)
--- NOTE | 2016-05-05 10:04 | Progress Note ---
Subjective Date of Service: May 05, 2016. Subjective Pt evaluation today including: conversation w/ patient, physical exam, chart review, lab review pt seen in followup, had fever last evening, now afebrile. pain min and unchanged, able to ambulate. no drainage or bleeding. this morning has increased erythema and edema into medial calf, this was not present on my exam yesterday. clinda added yesteray, tolerating well. no n/v/d. eating well. no fevers this am. blood cultures remain negative, wbc continues to improve. all remaining ros reviewed and are negative. culture from [facility] on 05/03 growing Group A strep and S. aureus, final pending. Problem List Medical Problems: (1) Cellulitis Status: Acute (2) Infected laceration Status: Acute (3) Traumatic open wound of left lower leg with infection Status: Acute Objective Vital Signs Date Time Temp Pulse Resp B/P Pulse Ox O2 Delivery O2 Flow Rate FiO2 05/05/16 07:50 36.6 88 16 112/61 96 Room Air 05/05/16 04:28 36.5 69 16 99/62 98 Room Air 05/05/16 04:10 98 Room Air 05/05/16 00:15 98 Room Air 05/04/16 20:00 95 Room Air 05/04/16 19:17 37.7 104 18 125/72 97 Room Air 05/04/16 16:00 Room Air 05/04/16 15:30 37.3 91 18 125/82 100 Room Air 05/04/16 12:05 37.0 84 16 105/62 96 Room Air 05/04/16 12:00 Room Air Physical Exam General Appearance: WD/WN, no apparent distress Eyes: EOMI Neck: supple Respiratory/Chest: normal breath sounds, no respiratory distress Cardiovascular: regular rate, rhythm, no edema Abdomen: soft Extremities: no pedal edema Neurologic/Psychiatric: alert, oriented x 3 Skin: normal color Comments: left leg with increased erythema and warmth today, no drainage or bleeding. min tenderness to palp Laboratory Results Last 24 Hours Test 05/05/16 07:32 White Blood Count 7.26 K/uL Red Blood Count 4.47 M/uL Hemoglobin 13.9 g/dL Hematocrit 40.0 % Mean Corpuscular Volume 89.5 fL Mean Corpuscular Hemoglobin 31.1 pg Mean Corpuscular Hemoglobin Concent 34.8 g/dl Platelet Count 165 K/uL Mean Platelet Volume 11.0 fL Neutrophils (%) (Auto) 47.8 % Lymphocytes (%) (Auto) 25.1 % Monocytes (%) (Auto) 22.5 % Eosinophils (%) (Auto) 4.0 % Basophils (%) (Auto) 0.3 % Neutrophils # (Auto) 3.48 K/uL Lymphocytes # (Auto) 1.82 K/uL Monocytes # (Auto) 1.63 K/uL Eosinophils # (Auto) 0.29 K/uL Basophils # (Auto) 0.02 K/uL RDW Standard Deviation 40.5 fL RDW Coefficient of Variation 12.5 % Immature Granulocyte % (Auto) 0.3 % Immature Granulocyte # (Auto) 0.02 K/uL Sodium Level 143 mmol/L Potassium Level 3.6 mmol/L Chloride Level 107 mmol/L Carbon Dioxide Level 28 mmol/L Anion Gap 8.0 mmol/L Blood Urea Nitrogen 9 mg/dl Creatinine 1.00 mg/dl Est Creatinine Clear Calc Drug Dose 114.1 ml/min Estimated GFR () 123.3 Estimated GFR (Non- 106.4 BUN/Creatinine Ratio 9.1 Random Glucose 88 mg/dl Calcium Level 9.0 mg/dl Assessment and Plan (1) Cellulitis and abscess of leg Assessment & Plan: continue with IV abx for now, blood cultures negative, wound with GAS and S. aureus. Await final cultures, continue with IV abx for now. Was hoping to transition to po but wound looks worse today. would suggest ct r/o collection/deep infection. (2) Traumatic open wound of left lower leg with infection (3) Fever
[2016-05-05] MEDS ORDERED: OPTIRAY 320 IV PRN (10:15)
--- NOTE | 2016-05-05 10:41 | Surgery Progress Note ---
Surgery Progress Note Date of Service May 05, 2016. Subjective Post OP Day: HD # 2 + ambulating, + diet, + feeling well, No SOB, No chest pain, No nausea, No vomiting Fever, chills, and sweats last evening none this am pain minimal pain when walking redness has increased from yesterday Objective Vital Signs: Date Time Temp Pulse Resp B/P Pulse Ox O2 Delivery O2 Flow Rate FiO2 05/05/16 08:00 96 Room Air 05/05/16 07:50 36.6 88 16 112/61 96 Room Air 05/05/16 04:28 36.5 69 16 99/62 98 Room Air 05/05/16 04:10 98 Room Air 05/05/16 00:15 98 Room Air 05/04/16 20:00 95 Room Air 05/04/16 19:17 37.7 104 18 125/72 97 Room Air 05/04/16 16:00 Room Air 05/04/16 15:30 37.3 91 18 125/82 100 Room Air 05/04/16 12:05 37.0 84 16 105/62 96 Room Air 05/04/16 12:00 Room Air General Appearance: WD/WN, no apparent distress Head: normocephalic, atraumatic Respiratory/Chest: no respiratory distress, no accessory muscle use Extremities: no calf tenderness, + pertinent finding (LLE lacerationg with associated cellulitis, increasing erythema of the medial leg compared to yesterday. still no fluctuance or induration present. No subcutaneous emphysema.) Laboratory Results: Results Past 24 Hours Test 05/05/16 07:32 Range/Units White Blood Count 7.26 4.8-10.8 K/uL Red Blood Count 4.47 4.7-6.1 M/uL Hemoglobin 13.9 14.0-18.0 g/dL Hematocrit 40.0 42-52 % Mean Corpuscular Volume 89.5 80-100 fL Mean Corpuscular Hemoglobin 31.1 25-34 pg Mean Corpuscular Hemoglobin Concent 34.8 32-36 g/dl Platelet Count 165 130-400 K/uL Mean Platelet Volume 11.0 7.4-10.4 fL Neutrophils (%) (Auto) 47.8 % Lymphocytes (%) (Auto) 25.1 % Monocytes (%) (Auto) 22.5 % Eosinophils (%) (Auto) 4.0 % Basophils (%) (Auto) 0.3 % Neutrophils # (Auto) 3.48 1.4-6.5 K/uL Lymphocytes # (Auto) 1.82 1.2-3.4 K/uL Monocytes # (Auto) 1.63 0.11-0.59 K/uL Eosinophils # (Auto) 0.29 0-0.5 K/uL Basophils # (Auto) 0.02 0-0.2 K/uL RDW Standard Deviation 40.5 36.4-46.3 fL RDW Coefficient of Variation 12.5 11.5-14.5 % Immature Granulocyte % (Auto) 0.3 % Immature Granulocyte # (Auto) 0.02 0.00-0.02 K/uL Sodium Level 143 136-145 mmol/L Potassium Level 3.6 3.5-5.1 mmol/L Chloride Level 107 98-107 mmol/L Carbon Dioxide Level 28 21-32 mmol/L Anion Gap 8.0 3-11 mmol/L Blood Urea Nitrogen 9 7-18 mg/dl Creatinine 1.00 0.60-1.40 mg/dl Est Creatinine Clear Calc Drug Dose 114.1 ml/min Estimated GFR () 123.3 Estimated GFR (Non- 106.4 BUN/Creatinine Ratio 9.1 10-20 Random Glucose 88 70-99 mg/dl Calcium Level 9.0 8.5-10.1 mg/dl Assessment & Plan LLE Laceration with Cellulitis - Febrile last evening wtih temp of 37.7 none this am - leukocytosis resolved and improving - Increasing erythema to medial aspect of lower extremity - no induration or fluctuance Plan: I marked the borders of erythema to monitor for increasing cellulitis Again this is no evidence of induration or fluctuance to suggest need for surgical incision and drainage or debridement Continue IV antibiotics and pain management CT scan of the leg ordered to rule out deep abscess/infection will continue to follow Pt seen and examined. Since this morning, erythema has decreased significantly within the line drawn. CT scan not done yet. No fluctuance or drainage of fluid from the laceration on his left lower jackman. Less edema. Looks better. Will await CT but likely can continue IV abx and conservative treatment.
--- NOTE | 2016-05-05 11:50 | Hospitalist Progress Note ---
Hospitalist Progress Note Date of Service May 05, 2016. (Amara Lopez ., PASCUALC) Subjective Pt evaluation today including: conversation w/ patient, conversation w/ family (mother at bedside), physical exam, chart review, lab review, review of inpatient medication list Pain: None at rest, 4/10 dull pain when walking or with pressure PO Intake: Tolerating PO diet Voiding: no voiding problems Patient states that he had fevers and sweats last night, although he has had none this morning. States he is otherwise feeling well. He states that his left lower extremity has no pain at rest but has a 4/10 dull pain when walking or applying pressure to the area. The patient denies chills, chest pain, palpitations, claudication, cough, wheezing, shortness of breath, nausea, vomiting, abdominal pain, dysuria, hematuria, urinary retention, paralysis, weakness, numbness and tingling. Additional Comments: See HPI for pertinent positives and negatives. All other systems reviewed and negative. (Amara Lopez ., IZAIAH-C) Objective Vital Signs Date Time Temp Pulse Resp B/P Pulse Ox O2 Delivery O2 Flow Rate FiO2 05/05/16 08:00 96 Room Air 05/05/16 07:50 36.6 88 16 112/61 96 Room Air 05/05/16 04:28 36.5 69 16 99/62 98 Room Air 05/05/16 04:10 98 Room Air 05/05/16 00:15 98 Room Air 05/04/16 20:00 95 Room Air 05/04/16 19:17 37.7 104 18 125/72 97 Room Air 05/04/16 16:00 Room Air 05/04/16 15:30 37.3 91 18 125/82 100 Room Air 05/04/16 12:05 37.0 84 16 105/62 96 Room Air 05/04/16 12:00 Room Air (Amara Lopez, PASCUALC) Physical Exam General Appearance: WD/WN, no apparent distress Eyes: normal inspection, PERRL, EOMI ENT: normal ENT inspection, hearing grossly normal, pharynx normal Neck: supple, no JVD, trachea midline Respiratory/Chest: lungs clear, normal breath sounds, no respiratory distress Cardiovascular: regular rate, rhythm, no gallop, no murmur Abdomen: normal bowel sounds, non tender, soft Extremities: no pedal edema, normal capillary refill, + pertinent finding ( large 10 cm laceration on anterior aspect of L jackman. areas of scabbing with possible superficial necrosis. surrounding erythema, especially on medial aspect. erythema appears worse, however tracking no longer present) Neurologic/Psychiatric: alert, normal mood/affect, oriented x 3 Skin: normal color, warm/dry, no rash (Amara Lopez ., IZAIAH-C) Laboratory Results Last 24 Hours Test 05/05/16 07:32 White Blood Count 7.26 K/uL Red Blood Count 4.47 M/uL Hemoglobin 13.9 g/dL Hematocrit 40.0 % Mean Corpuscular Volume 89.5 fL Mean Corpuscular Hemoglobin 31.1 pg Mean Corpuscular Hemoglobin Concent 34.8 g/dl Platelet Count 165 K/uL Mean Platelet Volume 11.0 fL Neutrophils (%) (Auto) 47.8 % Lymphocytes (%) (Auto) 25.1 % Monocytes (%) (Auto) 22.5 % Eosinophils (%) (Auto) 4.0 % Basophils (%) (Auto) 0.3 % Neutrophils # (Auto) 3.48 K/uL Lymphocytes # (Auto) 1.82 K/uL Monocytes # (Auto) 1.63 K/uL Eosinophils # (Auto) 0.29 K/uL Basophils # (Auto) 0.02 K/uL RDW Standard Deviation 40.5 fL RDW Coefficient of Variation 12.5 % Immature Granulocyte % (Auto) 0.3 % Immature Granulocyte # (Auto) 0.02 K/uL Sodium Level 143 mmol/L Potassium Level 3.6 mmol/L Chloride Level 107 mmol/L Carbon Dioxide Level 28 mmol/L Anion Gap 8.0 mmol/L Blood Urea Nitrogen 9 mg/dl Creatinine 1.00 mg/dl Est Creatinine Clear Calc Drug Dose 114.1 ml/min Estimated GFR () 123.3 Estimated GFR (Non- 106.4 BUN/Creatinine Ratio 9.1 Random Glucose 88 mg/dl Calcium Level 9.0 mg/dl (Amara Lopez ., PASCUALC) Assessment and Plan 20 y/o male with a history of intermittent asthma who presents to the ED with fevers as well as swelling and erythema of the LLE. Sustained laceration on left anterior jackman on 04/24 or 04/25 during vacation in [facility]. No issues initially , then on 05/03 developed worsening pain, erythema, and edema. He presented to the ED on 05/03, where a wound culture was taken. He was given Keflex and Bactrim and sent home. Later that afternoon however, the patient noticed a painful, enlarged lymph node in his left groin and had become febrile with worsening swelling and pain in the LLE. He did not have much an appetite prior to arrival. He returned to the ED where he was found to be septic with fever, tachycardia and source of infection. He was started on IV antibiotics and blood cultures were drawn. LLE cellulitis/laceration with sepsis--met sepsis criteria on admission with fevers, tachycardia and source of infection -Admit to telemetry. No events, has remained in NSR. Transferred to [facility] on 05/05 as has been stable -Lactic acid WNL at 0.6 -Decrease IVF to 75 cc/hr -General surgery consulted due to concern for possible necrotizing fasciitis, appreciate recs: no need for surgical debridement/surgical intervention at this time. Continue IV abx and follow wound/blood cultures. -ID consulted, appreciate recs: Continue daptomycin, doxycycline, and clindamycin. CT of lower extremity to r/o abscess, deep infection -Wound culture positive for Group A strep and staph aureus. Sensitivities pending -Blood cultures NGTD x 2 -Mild leukocytosis resolved: WBC down to 10.09 from 11.83. 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 Discussed with IZAIAH Lopez and agree with findings and plan as documented in the note. Any exceptions or clarifications are listed here: Feeling well but concern this AM for spreading erythema, Afebrile since last night. CT leg done and no abscess, just cellulitis and superficial thrombophlebitis. Reviewed results with pt Vitals reviewed NAD,AAOx3 SKin: left anterior tibia with large scabbed over laceration about 15 cm, surrounding erythema and tenderness but no subcutaneous emphysema palpated, no streaking erythema, erythema has migrated slightly to medial leg but actually appears improved from yesterday; left heel now with Optifoam in place s/p I&D by Dr. Frances/Wound MD Ext: left inguinal ALETHA palpated and is tender 20 yo male with sepsis, left leg cellulitis and wound. GAS and SA growing from wound cx, awaiting sensitivities for SA. -COntinue Dapto,clinda for antitoxin effect, doxy to cover for waterborne liam -appreciate ID consult -plan to dc to home tomorrow after sensitivities come back if BCxs still no growth and continues to improve -add Lovenox for DVT proph and can take NSAIDs prn for pain which will help with superficial thrombophlebitis seen on CT around wound Documented By: Karolina Jimenez (Karolina Jimenez MD)
--- NOTE | 2016-05-05 15:12 | DIAGNOSTIC IMAGING REPORT ---
CT left leg LEFT LOWER EXTREMITY WITH CLINICAL HISTORY: r/o abscess/deep infection infection. Cellulitis. TECHNIQUE: Transaxial acquisition with multi axial reformatted images. COMPARISON STUDY: None FINDINGS: The osseous structures including the length of the tibia as well as fibula appear unremarkable. There is no evidence for abnormal depressed reaction. There are findings of a diffuse circumferential cellulitis throughout the left lower leg. Several superficial venous structures show partial thrombosis consistent with superficial thrombophlebitis. The deep structures appear to be generally patent. There is a slight postcontrast enhancement of the outer muscular capsule but there is no evidence for abscess or collection based on this exam. No focal bony osteopenia is identified. There is again no evidence for drainable abscess or collection IMPRESSION: 1. Diffuse circumferential cellulitis about the lower leg. 2. This is most prominent anterior to the tibia at the level of the mid shaft. 3. No evidence for abscess collection or drainable fluid pocket. 4. Superficial thrombophlebitis with thrombosis of several superficial venous structures of the subcutaneous fat Electronically signed by: Greg Escobedo M.D. 05/05/2016 3:10 PM Dictated Date/Time: 05/05/2016 3:01 PM
[2016-05-05] MEDS ORDERED: IBUPROFEN 600 MG TAB PO PRN (15:30)
[2016-05-05 16:16] LABS: INR 1.1 (0.9-1.1); PROTHROMBIN TIME (PATIENT) 12.1 SECONDS (9.0-12.0)
[2016-05-05] MEDS ORDERED: ENOXAPARIN 40 MG/0.4 ML SYR SQ ONE (17:45)
[2016-05-05] MEDS: DAPTOmycin IV 400 MG in SODIUM CHLORIDE 0.9% 50ML 50 ML IV SCH (22:39)
[2016-05-06] MEDS: DOXYCYCLINE IV 100 MG in DEXTROSE 5% 100ML 100 ML IV SCH (01:23)
[2016-05-06] MEDS: CLINDAMYCIN IV 600 MG in DEXTROSE 5% ADD-VANTAGE 50ML 50 ML IV SCH (05:55)
[2016-05-06 06:39] LABS: BASO % 0.8 %; BASO ABS # 0.05 K/uL (0-0.2); COMPLETE YES; EOS % 5.1 %; HEMATOCRIT 39.5 % (42-52); IG% 0.3 %; LYMPH ABS # 2.52 K/uL (1.2-3.4); MEAN CELL VOLUME 85.9 fL (80-100); MEAN CORPUSCULAR HEMOGLOBIN 30.4 pg (25-34); MEAN CORPUSCULAR HGB CONC 35.4 g/dl (32-36); MONO % 17.2 %; NEUT % 38.6 %; PLATELET COUNT 198 K/uL (130-400); WHITE BLOOD COUNT 6.63 K/uL (4.8-10.8)
[2016-05-06 07:07] LABS: CALCIUM 9.1 mg/dl (8.5-10.1); CREATININE 0.9 mg/dl (0.60-1.40); POTASSIUM 3.6 mmol/L (3.5-5.1)
[2016-05-06 07:38] VITALS: BP 119/65; PULSE 67; TEMP 36.7; O2SAT 96
[2016-05-06 07:40] VITALS: O2SAT 96
[2016-05-06] MEDS ORDERED: ENOXAPARIN 40 MG/0.4 ML SYR SQ SCH (09:00)
[2016-05-06] MEDS ORDERED: MTR600X PO (09:55)
[2016-05-06] MEDS ORDERED: CLIN300C10 PO (09:55)
--- NOTE | 2016-05-06 10:01 | Discharge Instructions ---
Discharge Instructions Date of Service May 06, 2016. (Amara Lopez .NASEEM) Admission Reason for Admission: Cellulitis And Abscess Of Leg (Amara Lopez PA-C) Discharge Discharge Diagnosis / Problem: Cellulitis of left lower extremity (Amara Lopez PA-C) Discharge Goals Goal(s): Decrease discomfort, Improve disease control, Diagnostic testing, Therapeutic intervention (Amara Lopez PA-C) Activity Recommendations Activity Limitations: resume your previous activity (as tolerated) . (Amara Lopez PA-C) Instructions / Follow-Up Instructions / Follow-Up You were admitted to the hospital with an infection and traumatic wound in the left lower leg after presenting to the ER with tachycardia (fast heart rate) and fevers. You were treated with broad spectrum IV antibiotics while we awaited the results of your wound and blood cultures. The infection rapidly improved with treatment. Your wound culture revealed two organisms, a [place]- sensitive staphylococcus aureus and group A streptococcus. Your blood cultures have not grown any organisms. An x-ray and CT scan of your leg were performed to check for serious complications, such as necrotizing fasciitis or abscess formation, however these were not found on imaging. The CT scan did show superficial thrombophlebitis in the leg, which is an inflammatory condition due to clots in the superficial veins. This can be treated by taking non-steroidal anti-inflammatory drugs (NSAIDs) as recommended below. Due to the improvement in your leg, you are now medically stable for discharge. Recommendations: *Keep your left lower extremity elevated when possible to help reduce swelling. *You may also apply warm compresses to your left leg to help treat superficial thrombophlebitis. Medications: *Please take clindamycin 300 mg by mouth three times a day for 14 days for your cellulitis. You may also take an over the counter probiotic while you are on the antibiotic to help prevent nausea, diarrhea, etc. *You may take ibuprofen 600 mg by mouth up to three times a day as needed for pain and fever, as well as to treat the superficial thrombophlebitis. Continue taking until your leg is pain free and is no longer looking red. *Continue to take your albuterol inhaler as needed for shortness of breath/ wheezing. Follow up: *You have been scheduled to follow up with the [facility] on May 13 at 1 pm. Please seek medical attention if you experience fevers, chills, sweats, lightheadedness, loss of consciousness, chest pain, shortness of breath, nausea , vomiting, numbness, tingling, or if you experience worsening redness, swelling , or pain in the left leg. (Amara Lopez PA-C) Instructions / Follow-Up Please also use warm compresses on your right and left arms at previous sites of IVs for superficial thrombophlebitis there until resolved. Please also follow up with [facility] Primary care as scheduled. (Karolina Jimenez MD) Current Hospital Diet Patient's current hospital diet: Regular Diet (Amara Lopez PA-C) Discharge Diet Recommended Diet: Regular Diet (Amara Lopez PA-C) Pending Studies Studies pending at discharge: no (Amara Lopez PA-C) Medical Emergencies . Who to Call and When: Medical Emergencies: If at any time you feel your situation is an emergency, please call 911 immediately. . (Amara Lopez PA-C) Non-Emergent Contact Non-Emergency issues call your: Primary Care Provider Call Non-Emergent contact if: you have a fever, your pain is worsening, your pain is concerning you, wound has increased drainage, wound has increased redness, wound has increased pain, you have any medication questions . (Amara Lopez PA-C) Past History Medical & Surgical History: (1) Cellulitis (2) Traumatic open wound of left lower leg with infection (3) Fever (Amara Lopez PA-C) . "Provider Documentation" section prepared by Amara Lopez. (Amara Lopez PA-C) VTE Core Measure Inpt VTE Proph given/why not?: Enoxaparin (Lovenox)SQ (Amara Lopez PA-C)
--- NOTE | 2016-05-06 10:42 | Surgery Progress Note ---
Surgery Progress Note Date of Service May 06, 2016. Subjective Post OP Day: HD #3 + feeling well, No complaints, No nausea, No vomiting slight drainage from laceration yesterday but not consistent No increasing redness or pain no fevers Objective Vital Signs: Date Time Temp Pulse Resp B/P Pulse Ox O2 Delivery O2 Flow Rate FiO2 05/06/16 09:00 Room Air 05/06/16 07:40 96 Room Air 05/06/16 07:38 36.7 67 16 119/65 96 Room Air 05/05/16 23:38 Room Air 05/05/16 22:35 36.7 89 16 119/78 98 Room Air 05/05/16 15:25 Room Air 05/05/16 12:47 36.5 75 18 123/83 99 Room Air 05/05/16 12:41 36.9 75 16 97 05/05/16 11:50 36.9 75 16 117/72 97 Room Air General Appearance: WD/WN, no apparent distress Head: normocephalic, atraumatic Neck: trachea midline Respiratory/Chest: no respiratory distress, no accessory muscle use Extremities: + pertinent finding (LLE laceration with eschar scab present, no flucutance/induration present. Erythema much improved. No edema) Laboratory Results: Results Past 24 Hours Test 05/05/16 16:00 05/06/16 06:13 Range/Units Prothrombin Time 12.1 9.0-12.0 SECONDS Prothromb Time International Ratio 1.1 0.9-1.1 White Blood Count 6.63 4.8-10.8 K/uL Red Blood Count 4.60 4.7-6.1 M/uL Hemoglobin 14.0 14.0-18.0 g/dL Hematocrit 39.5 42-52 % Mean Corpuscular Volume 85.9 80-100 fL Mean Corpuscular Hemoglobin 30.4 25-34 pg Mean Corpuscular Hemoglobin Concent 35.4 32-36 g/dl Platelet Count 198 130-400 K/uL Mean Platelet Volume 11.0 7.4-10.4 fL Neutrophils (%) (Auto) 38.6 % Lymphocytes (%) (Auto) 38.0 % Monocytes (%) (Auto) 17.2 % Eosinophils (%) (Auto) 5.1 % Basophils (%) (Auto) 0.8 % Neutrophils # (Auto) 2.56 1.4-6.5 K/uL Lymphocytes # (Auto) 2.52 1.2-3.4 K/uL Monocytes # (Auto) 1.14 0.11-0.59 K/uL Eosinophils # (Auto) 0.34 0-0.5 K/uL Basophils # (Auto) 0.05 0-0.2 K/uL RDW Standard Deviation 38.3 36.4-46.3 fL RDW Coefficient of Variation 12.2 11.5-14.5 % Immature Granulocyte % (Auto) 0.3 % Immature Granulocyte # (Auto) 0.02 0.00-0.02 K/uL Sodium Level 140 136-145 mmol/L Potassium Level 3.6 3.5-5.1 mmol/L Chloride Level 105 98-107 mmol/L Carbon Dioxide Level 30 21-32 mmol/L Anion Gap 5.0 3-11 mmol/L Blood Urea Nitrogen 11 7-18 mg/dl Creatinine 0.90 0.60-1.40 mg/dl Est Creatinine Clear Calc Drug Dose 126.7 ml/min Estimated GFR () 140.0 Estimated GFR (Non- 120.8 BUN/Creatinine Ratio 12.0 10-20 Random Glucose 94 70-99 mg/dl Calcium Level 9.1 8.5-10.1 mg/dl Total Creatine Kinase 79 39-308 U/L Assessment & Plan LLE Laceration with Cellulitis - afebrile - leukocytosis resolved and improving, 6.6 today - Decreased erythema compared to yesterday - CT scan of LLE showing no deep abscess or fluid pocket for drainage Plan: Patient being discharged today. Will be discharged on oral antibiotics Advised to keep area clean and dry If increasing redness, pain, or swelling occurs report back to emergency room Pt following up with Wound Doctor Dr. Paige has seen and examined patient developed assessment and plan.
[2016-05-06 11:07] VITALS: BP 119/65; PULSE 67; TEMP 36.7; O2SAT 96
--- NOTE | 2016-05-06 15:35 | Discharge Summary ---
Discharge Summary Date of Service May 06, 2016. (Amara Lopez .NASEEM) Discharge Summary Admission Date: May 03, 2016 at 22:44 Discharge Date: May 06, 2016 Discharge Disposition: Home Principal Diagnosis: Cellulitis LLE Problems/Secondary Diagnoses: Intermittent asthma (Amara Lopez PA-C) Medication Reconciliation New Medications: Clindamycin Hcl (Clindamycin Hcl) 300 Mg Cap 300 MG PO TID for 14 Days, #42 TABS Take 1 tablet by mouth three times a day for 14 days. Ibuprofen (Ibuprofen) 600 Mg Tab 600 MG PO TID PRN for pain or fever for 14 Days, #42 TAB Take 1 tablet by mouth up to three times a day as needed for pain or fever. Continued Medications: Albuterol Hfa (Ventolin Hfa) 200 Puffs/05076 Mcg Aers 2-4 PUFFS INH Q6H, #1 INHALER Discontinued Medications: Cephalexin Monohydrate (Keflex) 500 Mg Cap 500 MG PO QID for 10 Days, #40 CAP Sulfa/Trimethoprim (Bactrim Ds 800MG/160MG) Tab 1 TAB PO BID for 10 Days, #20 TAB Referrals At Discharge Follow up Referrals: Physician Referral - Within 1 Week with [facility] Discharge Exam Patient reports feeling well. He states that the pain in his leg is much improved. He has no pain at rest and a 1/10 dull pain with pressure or weightbearing. He states that his inguinal node is also not really bothering him. He denies any fevers, chills or sweats overnight. The patient denies fevers, chills, sweats, chest pain, palpitations, claudication, cough, wheezing , shortness of breath, nausea, vomiting, abdominal pain, dysuria, hematuria, urinary retention, paralysis, weakness, numbness and tingling. Review of Systems: Constitutional: No chills, No fever, No sweats Eyes: No diplopia, No eye pain, No worsening of vision ENT: No hearing loss, No sore throat, No trouble swallowing Respiratory: No cough, No shortness of breath, No wheezing Cardiovascular: No chest pain, No claudication, No palpitations Abdomen: No nausea, No pain, No vomiting Musculoskeletal: No joint pain, No muscle pain, No swelling Genitourinary - Male: No dysuria, No hematuria, No urinary retention Neurologic: No numbness/tingling, No paralysis, No weakness Integumentary: + problem reported (erythema surrounding laceration of L anterior jackman, 1/10 dull pain with pressure to area or weightbearing), No itch, No rash Physical Exam: General Appearance: WD/WN, no apparent distress Eyes: normal inspection, PERRL, EOMI ENT: normal ENT inspection, hearing grossly normal, pharynx normal Neck: supple, no JVD, trachea midline Respiratory/Chest: lungs clear, normal breath sounds, no respiratory distress Cardiovascular: regular rate, rhythm, no gallop, no murmur Abdomen / GI: normal bowel sounds, non tender, soft Extremities: normal capillary refill, normal range of motion, + pertinent finding (large 10+ cm laceration on anterior left jackman with areas of scabbing. surrounding erythema improved. no swelling. wound on plantar surface of left heel covered and bandaged, no drainage) Neurologic/Psychiatric: alert, normal mood/affect, oriented x 3 Skin: normal color, warm/dry, no rash (Amara Lopez, PASCUALC) Hospital Course 20 y/o male with a history of intermittent asthma who presents to the ED with fevers as well as swelling and erythema of the LLE. Sustained laceration on left anterior jackman on 04/24 or 04/25 during vacation in [facility]. No issues initially , then on 05/03 developed worsening pain, erythema, and edema. He presented to the ED on 05/03, where a wound culture was taken. He was given Keflex and Bactrim and sent home. Later that afternoon however, the patient noticed a painful, enlarged lymph node in his left groin and had become febrile with worsening swelling and pain in the LLE. He did not have much an appetite prior to arrival. He returned to the ED where he was found to be septic with fever, tachycardia and source of infection. He was started on IV antibiotics and blood cultures were drawn. LLE cellulitis/laceration with sepsis--met sepsis criteria on admission with fevers, tachycardia and source of infection -Admit to telemetry. No events, has remained in NSR. Transferred to [facility] on 05/05 as has been stable -Lactic acid WNL at 0.6 -D/C IVF, adequate PO intake -General surgery consulted due to concern for possible necrotizing fasciitis, appreciate recs: no need for surgical debridement/surgical intervention at this time. Continue IV abx and follow wound/blood cultures. -ID consulted, appreciate recs: Discharge on clindamycin 300 mg PO TID x 14 days -D/C daptomycin, doxycycline and IV clindamycin -Wound culture positive for Group A strep and [place]-sensitive staph aureus. -Blood cultures NGTD x 2 -Mild leukocytosis resolved: WBC down to 10.09 from 11.83. Improved to 7.26 on 05/05. Continues to improve on 05/06 -Left tib/fib x-ray shows soft tissue swelling, no subcutaneous gas or bony abnormalities -CT of LLE shows cellulitis. No abscess formation. Positive for superficial thrombophlebitis -Patient given ibuprofen 600 mg PO TID prn pain/fever and treat superficial thrombophlebitis Intermittent asthma -Albuterol inhaler prn SOB/wheezing DVT prophylaxis -Enoxaparin 40 mg SC q24h Code Status -Level I, FULL RESUSCITATION STATUS Dispo -Patient medically stable to discharge home -Scheduled to follow up with wound care clinic and infectious disease next week Total Time Spent: Greater than 30 minutes This includes examination of the patient, discharge planning, medication reconciliation, and communication with other providers. (Amara Lopez ., NASEEM) Discharge Instructions Please refer to the electronic Patient Visit Report (Discharge Instructions) for additional information. (Amara Lopez ., NASEEM) Additional Copies To [facility] History Physician Residential Direct Support Professional Supervision Note: I interviewed and examined the patient. Discussed with IZAIAH Lopez and agree with findings and plan as documented in the note. Any exceptions or clarifications are listed here: Doing well, ready for discharge SKin: left anterior tibia with large scabbed over laceration about 15 cm, minimal surrounding erythema and tenderness but no subcutaneous emphysema palpated, no streaking erythema, left heel now with Optifoam in place s/p I&D by Dr. Frances/Wound MD Ext: left inguinal ALETHA palpated and is tender but less so than previous; right AC area with some mild streaking erythema and firm small cords tracking from site of previous IV 20 yo male with sepsis, left leg cellulitis and wound. GAS and SA growing from wound cx, awaiting sensitivities for SA. -clinda to finsih 2 week course, f/u with Wound CLinic and ID, PCP - NSAIDs prn for superficial thrombophlebitis seen on CT around wound and on RUE Documented By: Karolina Jimenez (Karolina Jimenez MD)
--- NOTE | 2016-05-10 09:08 | CONSULTATION REPORT ---
DATE OF CONSULTATION: 05/05/2016 CHIEF COMPLAINT: Infection, left lower extremity. HISTORY OF PRESENT ILLNESS: The patient states that he fell while on vacation in [place] 7 days ago on a set of concrete stairs injuring his left leg. The patient had a laceration in that area. The patient was seen earlier in the Emergency Department and started on antibiotics; however, the pain and redness continued to increase over the day and he was subsequently admitted for management of this progressive problem. The patient states he did have a fever the other day of 100. The patient denies any chills or night sweats. The patient denies any chest pain, shortness of breath, abdominal discomfort, nausea or vomiting. The patient denies any other systemic complaints at this time. PAST MEDICAL HISTORY: Unremarkable. PAST SURGICAL HISTORY: Unremarkable. MEDICATIONS: Were noted in the nursing notes and were reviewed. ALLERGIES: None. REVIEW OF SYSTEMS: Ten systems were reviewed in their entirety and positive findings were noted in the chief complaint and history of present illness. PHYSICAL EXAMINATION: VITAL SIGNS: Were reviewed and found to be unremarkable. The patient is afebrile. GENERAL: The patient is lying in hospital bed in no acute distress, alert and cooperative throughout the examination. HEAD, EYES, EARS, NOSE, AND THROAT: Pupils equal and reactive to light and accommodation. Sclerae clear. NECK: Supple. CHEST: Heart and lungs clear to auscultation. EXTREMITIES: Reveals the presence of an eschar formation from a prior laceration site on the anterior tibial region of the left lower extremity. There is some minimal surrounding periwound erythema noted. Stable eschar present. There is no active drainage or swelling noted. Also noted on the plantar surface of the patient's foot is a 1.5 cm blister formation with some elevation of the epidermis. The patient states he has had this off and on for the past few months and was unrelated to the trauma to his left leg. The patient denies any known trauma to this area either. NEUROLOGICAL EXAMINATION: The patient is alert and oriented x3. There are no focal deficits noted. IMPRESSION: 1. Resolving cellulitis with secondary traumatic wound to the left lower extremity. 2. Stage II pressure ulcer, plantar surface of the left foot. PLAN: At this time, the eschar is stable and will be left in position at this time until the cellulitis is completely resolved. The plantar surface ulceration did require debridement. With the patient's permission and after the application of topical Xylocaine 4% the site was debrided with scissors and forceps. Blister was deroofed and removed. No significant bleeding. There was no underlying slough or periwound erythema noted. This site will be dressed with Aquacel AG and gauze changed daily. The patient will be monitored as needed during hospitalization and is recommended to follow up in 1 week following discharge. This represented a nonexcisional debridement of less than 20 square cm. MTDD
[2016-05-23] MEDS ORDERED: CEPH500C2 PO (07:55)
== END 2016-05-06 11:42 | disposition home or self-care (01) | DRG 602 ==
LOC: ENRESERVTM → ENRESERVDT → C.EDB 20:29 → C.2E 22:44 → C.MS2W 05-05 12:43
PROVIDERS: ADMIT Internal Medicine; ATTEND Family Medicine
DX: L03.116 Cellulitis of left lower limb (principal); A41.9 Sepsis, unspecified organism; J45.909 Unspecified asthma, uncomplicated

== ENCOUNTER 2016-05-16 13:41 | Emergency (ER) | payer OTHER ==
[~2016-05-16] VITALS: Ht 182.9 cm; Wt 71.2 kg
[~2016-05-16 13:41] MED LIST changes: -ALBUAER INH; -CEPH500C PO; -CEPH500T PO; +CLIN300C10 PO; +MTR600X PO; -SULF800T23 PO
[2016-05-16 13:46] VITALS: TEMP 36.4; Ht 182.9 cm; Wt 71.2 kg
[2016-05-16 15:07] VITALS: BP 122/74; PULSE 92; O2SAT 97
--- NOTE | 2016-05-16 22:34 | EMERGENCY ROOM VISIT NOTE ---
ED Visit Note First contact with patient: 14:20 Chief Complaint: Forearm pain. History of Present Illness: Mr. Kerr is a 20-year-old white male who ambulates into the ED complaining of bilateral forearm pain. Historically patient reports 7 days ago he was admitted to the hospital for a wound infection on the legs. He was given IV antibiotics. Patient reported over the last few days he has noted that the IV placement site was bruising, hard and tender. He describes the pain as an achy sensation. He rates his discomfort 2/10. His pain is nonradiating. He has been using his prescribed ibuprofen as prescribed. He denies any associated symptoms including fevers, chills, skin eruptions, upper respiratory tract symptoms, shortness of breath, palpitations, chest pain, previous clots, claudication, cramping. Review of Systems: As noted above in history of present illness. 8 body systems were reviewed and found to be negative as noted above. Past Medical History: Cellulitis, asthma. Current Medications: Ibuprofen, clindamycin and albuterol. Allergies to Medications: Patient denies. 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 Physical Examination: Vital Signs: Date Time Temp Pulse Resp B/P Pulse Ox O2 Delivery O2 Flow Rate FiO2 05/16/16 15:07 92 20 122/74 97 05/16/16 13:46 36.4 96 18 117/88 95 Room Air GENERAL: 20-year-old male in no acute distress, nontoxic-appearing, afebrile and hemodynamically stable. NEUROLOGICAL: Awake, alert and oriented to person, place and time. Answering questions appropriately and following commands. Normal gait. Good hand eye coordination. SKIN: Warm, dry and pink. HEENT: Atraumatic and normocephalic. THORAX: Lungs sounds are clear to auscultation and equal bilaterally with symmetrical chest wall. No crepitus, tenderness, subcutaneous air or deformities noted. ABDOMEN: Flat, soft and nontender. Positive bowel sounds in all quadrants. No guarding, rigidity or organomegaly. UPPER EXTREMITIES: Moves extremities well on command and with purpose. No tenderness over the joint. Patient has one IV injection site over both forearms. There is some mild bruising around the sites but no erythema. There are not hot to touch. They're firm to touch. There is no localized swelling. All distal neurovascular statuses are intact and equal bilaterally. No calf tenderness or cords. ED Course: Patient is assessed as noted above. Patient was educated about tonight's findings and instructed on his treatment plan; he verbalizes understanding and agreement with this plan. Clinical Impression: Wound recheck. Disposition: Patient discharged home in stable condition; prior to departure he was reassessed and subjectively reported he was pain and symptom-free. Plan: Patient was encouraged to continue his current medications. Patient was encouraged to follow-up for recheck at [facility] or return to the ED if necessary.
[2016-05-23] MEDS ORDERED: CEPH500C2 PO (07:55)
== END 2016-05-16 15:08 | disposition home or self-care (01) ==
LOC: C.EDB 13:43 → C.EDD 15:08
DX: Z09 Encounter for follow-up examination after completed treatment for conditions other than malignant neoplasm (principal); S50.11XA Contusion of right forearm, initial encounter; S50.12XA Contusion of left forearm, initial encounter; X58.XXXA Exposure to other specified factors, initial encounter; J45.909 Unspecified asthma, uncomplicated; Z86.19 Personal history of other infectious and parasitic diseases